=== PATIENT | female | born 1960 | race Caucasian/White ===

== ENCOUNTER 2018-06-07 00:23 | Emergency (ER) | payer BC, OTHER ==
[~2018-06-07] VITALS: Ht 165.1 cm; Wt 54.4 kg
[2018-06-07 01:30] LABS: URINE BILIRUBIN NEGATIVE (Negative); URINE BLOOD 3+ (Negative); URINE CLARITY SL CLOUDY; URINE COLOR YELLOW; URINE GLUCOSE-RANDOM* NEGATIVE (Negative); URINE KETONES NEGATIVE (Negative); URINE LEUKOCYTES-REFLEX 3+ (Negative); URINE NITRITE-REFLEX NEGATIVE (Negative); URINE PROTEIN (DIPSTICK) 2+ (Negative); URINE SPECIFIC GRAVITY 1.025 (1.005-1.035); URINE UROBILINOGEN 0.2 E.U./dl (0.2-1.0)
[2018-06-07 01:32] LABS: ABSOLUTE NEUTROPHILS 5.7 thou/uL (1.4-8.2); EOSINOPHILS 6.9 % (0.0-3.0); HEMATOCRIT 25.9 % (37.0-47.0); HEMOGLOBIN 9.1 gm/dL (12.0-15.0); LYMPHOCYTES 25.8 % (24.0-44.0); MCH 33.3 pg (26.0-34.0); MCHC 35.4 g/dL (28.0-37.0); MCV 94.1 fL (80.0-100.0); MONOCYTES 10.1 % (1.0-8.0); PLATELET COUNT 338 thou/uL (150-400); POLYS 56.2 % (36.0-66.0); RBC 2.75 mil/uL (4.20-5.00); RDW 14.6 % (10.5-14.5); WBC 10.2 thou/uL (4.0-11.0)
[2018-06-07 01:37] LABS: CASTS None Seen /LPF (None Seen); MUCUS None Seen strn/LPF (None Seen); SQUAMOUS None Seen /LPF (0-3); URINE WBC-REFLEX >25 Many /HPF (0-5); WBC CLUMPS Few (None Seen)
[2018-06-07 01:38] LABS: AMORPHOUS URATES Moderate /LPF (None Seen); CALCIUM 9.3 mg/dL (8.5-10.1); CREATININE 0.6 mg/dL (0.6-1.0); CRYSTALS None Seen /LPF (None Seen)
[2018-06-07 01:44] LABS: TOTAL BILIRUBIN 0.2 mg/dL (<0.1-1.0); TOTAL PROTEIN 6.3 g/dL (6.4-8.2)
[2018-06-07] MEDS ORDERED: BACTRIM DS TAB1 EACH PO (02:06)
[2018-06-07 03:54] VITALS: BP 146/78
== END 2018-06-07 03:57 | disposition home or self-care (01) ==
LOC: ER 00:23
PROVIDERS: Emergency Medicine
DX: T83.098A Other mechanical complication of other urinary catheter, initial encounter (principal); N39.0 Urinary tract infection, site not specified; D64.9 Anemia, unspecified; G82.20 Paraplegia, unspecified; Y83.9 Surgical procedure, unspecified as the cause of abnormal reaction of the patient, or of later complication, without mention of misadventure at the time of the procedure; Y92.89 Other specified places as the place of occurrence of the external cause

== ENCOUNTER 2018-06-10 22:28 | Inpatient (IN) | payer BC, OTHER ==
[~2018-06-10] VITALS: Ht 167.6 cm; Wt 57.3 kg
--- NOTE | ~2018-06-10 | EKG ---
[address] [address] ELECTROCARDIOGRAM REPORT Name: JORGE CEVALLOS Room #: 239-P ADM IN M.R.#: [id number] Admission: 06/11/18 Attend Phys: Alfredo Campos MD Discharge: Date of : 56 Report #: [id number] THIS REPORT FOR: //name// [facility] ED Test Date: 2018-06-11 Test Time: 00:45:20 Pat Name: JORGE CEVALLOS Department: Room: 239 P Gender: F [employer]aching Machine Operator: LEANNA : 1960 Requested By: Flores Maria Order Number: [id number] MD: Cal Kang Measurements Intervals [place] Rate: 76 P: 59 HI: 131 QRS: 71 QRSD: 98 T: 53 QT: 388 QTc: 437 Interpretive Statements Sinus rhythm Normal tracing No previous ECG available for comparison Electronically Signed On 06-11-2018 8:58:58 CDT by Cal Kang [email or web address] <ELECTRONICALLY SIGNED> By: Cal Kang MD, FACC 06/11/18 0858 0045 0045 Cal Kang MD, FACC /EPI
[~2018-06-10 22:28] MED LIST: BACTRIM DS TAB1 EACH PO
[2018-06-10 23:20] LABS: ABSOLUTE NEUTROPHILS 5.4 thou/uL (1.4-8.2); EOSINOPHILS 8.5 % (0.0-3.0); HEMATOCRIT 25.9 % (37.0-47.0); HEMOGLOBIN 9.1 gm/dL (12.0-15.0); LYMPHOCYTES 23.2 % (24.0-44.0); MCH 33.3 pg (26.0-34.0); MCHC 35.3 g/dL (28.0-37.0); MCV 94.3 fL (80.0-100.0); MONOCYTES 8.3 % (1.0-8.0); PLATELET COUNT 319 thou/uL (150-400); RBC 2.74 mil/uL (4.20-5.00); RDW 14.9 % (10.5-14.5); WBC 9.1 thou/uL (4.0-11.0)
[2018-06-10 23:23] LABS: ANION GAP 9 mmol/L (7-16); BUN 13 mg/dL (7-18); CALCIUM 9.9 mg/dL (8.5-10.1); CHLORIDE 102 mmol/L (98-107); CO2 25 mmol/L (21-32); CREATININE 0.8 mg/dL (0.6-1.0); POTASSIUM 4.3 mmol/L (3.5-5.1); SODIUM 136 mmol/L (136-145)
[2018-06-10 23:29] LABS: ALBUMIN 3.1 g/dL (3.4-5.0); DIRECT BILIRUBIN < 0.1 mg/dL (<0.1-0.3); LIPASE 73 U/L (73-393); SGOT 30 U/L (15-37); SGPT 33 U/L (30-65); TOTAL BILIRUBIN 0.2 mg/dL (<0.1-1.0); TOTAL PROTEIN 6.2 g/dL (6.4-8.2)
[2018-06-10 23:31] LABS: URINE BILIRUBIN NEGATIVE (Negative); URINE BLOOD 3+ (Negative); URINE CLARITY SL CLOUDY; URINE COLOR YELLOW; URINE GLUCOSE-RANDOM* NEGATIVE (Negative); URINE KETONES NEGATIVE (Negative); URINE NITRITE-REFLEX NEGATIVE (Negative); URINE PROTEIN (DIPSTICK) TRACE (Negative); URINE UROBILINOGEN 0.2 E.U./dl (0.2-1.0)
[2018-06-10 23:31] LABS: GLUCOSE 101 mg/dL (74-106)
[2018-06-10 23:32] LABS: URINE LEUKOCYTES-REFLEX 3+ (Negative)
[2018-06-10 23:41] LABS: CASTS None Seen /LPF (None Seen); MUCUS None Seen strn/LPF (None Seen); SQUAMOUS None Seen /LPF (0-3); YEAST-REFLEX Present (None Seen)
[2018-06-10 23:42] LABS: BACTERIA-REFLEX >30 Many /HPF (None Seen); CRYSTALS None Seen /LPF (None Seen); URINE RBC 3-10 Few /HPF (0-2); URINE WBC-REFLEX >25 Many /HPF (0-5)
[2018-06-10] MEDS ORDERED: VITAMIN D5000 UNI1 PO (23:46)
[2018-06-10] MEDS ORDERED: FLOMAX0.4 MG PO (23:46)
[2018-06-10] MEDS ORDERED: VITAMINC500 PO (23:47)
[2018-06-10] MEDS ORDERED: VITAMIN B-1100 M1 PO (23:47)
[2018-06-10] MEDS ORDERED: HIPREX1 GM PO (23:48)
[2018-06-10] MEDS ORDERED: CENTRUM SILVER1 EAC4 PO (23:48)
[2018-06-10] MEDS ORDERED: PAXIL10 MG PO (23:49)
[2018-06-10] MEDS ORDERED: KLOR-CON 1010 MEQ PO (23:49)
[2018-06-10] MEDS ORDERED: PROTONIX40 M1 PO (23:49)
[2018-06-10] MEDS ORDERED: MIRALAX17 GM PO (23:49)
[2018-06-10] MEDS ORDERED: SENNA PLUS TAB1 EACH PO (23:50)
[2018-06-10] MEDS ORDERED: ELIQUIS2.5 MG PO (23:51)
[2018-06-10] MEDS ORDERED: ANTIBIOTIC28.4 GM TOP (23:51)
[2018-06-10] MEDS ORDERED: ENEMEEZ PLUS MIN5 ML RECTAL (23:51)
[2018-06-10] MEDS ORDERED: METHYLPHENIDATE10 M7 PO (23:52)
[2018-06-10] MEDS ORDERED: ATIVAN0.5 MG PO (23:52)
[2018-06-10] MEDS ORDERED: NYAMYC15 GM TOP (23:52)
[2018-06-10] MEDS ORDERED: MTX 4%-1% PATC1 EACH TOP (23:54)
[2018-06-10] MEDS ORDERED: LIORESAL 10 MG10 MG PO (23:55)
[2018-06-10] MEDS ORDERED: SANTYL OINTMENT30 G1 TOP (23:55)
[2018-06-10] MEDS ORDERED: NORCO 5-325 TA1 EACH PO (23:55)
[2018-06-10] MEDS ORDERED: CALCIUM 600 +1 EAC1 PO (23:55)
[2018-06-10] MEDS ORDERED: CELEBREX 200 M200 M1 PO (23:56)
[2018-06-10] MEDS ORDERED: CARVEDILOL12.5 MG PO (23:56)
[2018-06-10] MEDS ORDERED: FLEXERIL PO (23:57)
[2018-06-10] MEDS ORDERED: FLORINEF ACETA0.1 MG PO (23:57)
[2018-06-10] MEDS ORDERED: COLACE100 MG PO (23:57)
[2018-06-10] MEDS ORDERED: NEURONTIN600 MG PO (23:58)
[2018-06-10] MEDS ORDERED: NEURONTIN 300300 M1 PO (23:58)
[2018-06-10] MEDS ORDERED: FOLIC ACID 1 MG1 MG PO (23:58)
[2018-06-10] MEDS ORDERED: IBUPROFEN 600600 M1 PO (23:59)
[2018-06-10] MEDS ORDERED: COZAAR 25 MG TA25 M1 PO (23:59)
[2018-06-10] MEDS ORDERED: MELATONIN5 M1 PO (23:59)
[2018-06-11 01:32] VITALS: BP 111/51
[2018-06-11 02:27] VITALS: BP 127/88
[2018-06-11 04:00] VITALS: BP 126/62
[2018-06-11 08:00] VITALS: BP 131/59
[2018-06-11 12:00] VITALS: BP 158/76
[2018-06-11 12:53] LABS: % SATURATION 16 % (20-39); IRON 35 ug/dL (50-170); TIBC 222 ug/dL (250-450)
[2018-06-11 13:41] LABS: FOLIC ACID > 40.0 ng/mL (8.6-58.9)
[2018-06-11 20:01] VITALS: BP 163/59
[2018-06-12 00:01] VITALS: BP 158/105
[2018-06-12 08:00] VITALS: BP 159/96
[2018-06-12 08:13] VITALS: BP 169/86
[2018-06-12 12:01] VITALS: BP 183/90
[2018-06-12 16:29] VITALS: BP 166/61
[2018-06-12 19:08] VITALS: BP 146/65
[2018-06-13 03:15] VITALS: BP 195/91
[2018-06-13 07:15] VITALS: BP 176/91
[2018-06-13 11:22] LABS: HEMATOCRIT 26.6 % (37.0-47.0); HEMOGLOBIN 9.3 gm/dL (12.0-15.0); MCH 33.1 pg (26.0-34.0); MCHC 35.1 g/dL (28.0-37.0); MCV 94.4 fL (80.0-100.0); RBC 2.82 mil/uL (4.20-5.00); RDW 14.5 % (10.5-14.5); WBC 6.4 thou/uL (4.0-11.0)
[2018-06-13 11:38] LABS: CALCIUM 9.3 mg/dL (8.5-10.1); CREATININE 0.6 mg/dL (0.6-1.0); MAGNESIUM 1.4 mg/dL (1.8-2.4); POTASSIUM 3.6 mmol/L (3.5-5.1)
[2018-06-13 15:32] VITALS: BP 148/68
[2018-06-13 20:05] VITALS: BP 179/68
[2018-06-14 04:42] VITALS: BP 162/66
[2018-06-14 05:22] LABS: HEMATOCRIT 26.4 % (37.0-47.0); MCH 32.6 pg (26.0-34.0); MCHC 34.2 g/dL (28.0-37.0); MCV 95.2 fL (80.0-100.0); RBC 2.77 mil/uL (4.20-5.00); RDW 14.4 % (10.5-14.5); WBC 8.3 thou/uL (4.0-11.0)
[2018-06-14 05:37] LABS: CREATININE 0.5 mg/dL (0.6-1.0); MAGNESIUM 1.5 mg/dL (1.8-2.4); POTASSIUM 3.8 mmol/L (3.5-5.1)
[2018-06-14 08:00] VITALS: BP 165/77
[2018-06-14 15:00] VITALS: BP 151/79
[2018-06-14 19:30] VITALS: BP 173/89
[2018-06-15 04:17] VITALS: BP 180/85
[2018-06-15 06:18] LABS: HEMATOCRIT 29.7 % (37.0-47.0); HEMOGLOBIN 10.1 gm/dL (12.0-15.0); MCH 32.5 pg (26.0-34.0); MCV 95.8 fL (80.0-100.0); RBC 3.11 mil/uL (4.20-5.00); RDW 14.7 % (10.5-14.5); WBC 6.8 thou/uL (4.0-11.0)
[2018-06-15 06:26] LABS: CALCIUM 9.6 mg/dL (8.5-10.1); CREATININE 0.4 mg/dL (0.6-1.0); MAGNESIUM 1.5 mg/dL (1.8-2.4); POTASSIUM 3.8 mmol/L (3.5-5.1)
[2018-06-15 08:00] VITALS: BP 178/70
[2018-06-15 14:00] VITALS: BP 135/89
[2018-06-16 03:55] VITALS: BP 165/83
[2018-06-16 04:36] LABS: HEMATOCRIT 28.8 % (37.0-47.0); MCH 33.1 pg (26.0-34.0); MCHC 34.6 g/dL (28.0-37.0); MCV 95.5 fL (80.0-100.0); RBC 3.02 mil/uL (4.20-5.00); RDW 14.5 % (10.5-14.5)
[2018-06-16 04:47] LABS: CALCIUM 9.6 mg/dL (8.5-10.1); CREATININE 0.5 mg/dL (0.6-1.0); MAGNESIUM 1.4 mg/dL (1.8-2.4); POTASSIUM 3.8 mmol/L (3.5-5.1)
[2018-06-16 08:00] VITALS: BP 185/96
[2018-06-16 15:19] VITALS: BP 140/77
[2018-06-16 19:28] VITALS: BP 175/84
[2018-06-17 04:20] VITALS: BP 181/89
[2018-06-17 06:28] LABS: HEMATOCRIT 28.8 % (37.0-47.0); MCH 32.8 pg (26.0-34.0); MCHC 34.6 g/dL (28.0-37.0); MCV 94.9 fL (80.0-100.0); RBC 3.03 mil/uL (4.20-5.00); RDW 14.7 % (10.5-14.5); WBC 7.2 thou/uL (4.0-11.0)
[2018-06-17 06:40] LABS: CALCIUM 9.5 mg/dL (8.5-10.1); CREATININE 0.4 mg/dL (0.6-1.0); MAGNESIUM 1.4 mg/dL (1.8-2.4); POTASSIUM 3.4 mmol/L (3.5-5.1)
[2018-06-17 08:12] VITALS: BP 172/71
[2018-06-17 15:15] VITALS: BP 131/77
[2018-06-17 19:45] VITALS: BP 156/74
[2018-06-18 02:55] VITALS: BP 146/74
[2018-06-18 06:25] LABS: HEMATOCRIT 28.4 % (37.0-47.0); HEMOGLOBIN 9.9 gm/dL (12.0-15.0); MCH 33.2 pg (26.0-34.0); MCHC 34.9 g/dL (28.0-37.0); RBC 2.99 mil/uL (4.20-5.00); RDW 14.6 % (10.5-14.5); WBC 9.1 thou/uL (4.0-11.0)
[2018-06-18 06:33] LABS: CALCIUM 9.7 mg/dL (8.5-10.1); CREATININE 0.6 mg/dL (0.6-1.0); POTASSIUM 4.6 mmol/L (3.5-5.1)
[2018-06-18 07:57] VITALS: BP 140/85
[2018-06-18] MEDS ORDERED: CIPROFLOXACIN500 M1 PO (13:47)
[2018-06-18] MEDS ORDERED: PROBIOTIC1 EAC1 PO (13:51)
[2018-06-18 15:34] VITALS: BP 140/85
== END 2018-06-18 16:00 | DRG 689 ==
LOC: ER 22:28 → ICU 06-11 01:05 → EROBS 06-11 01:05 → 4W 06-11 01:05 → ICU 06-11 02:29 → 4W 06-12 15:29
PROVIDERS: Emergency Medicine; Hospitalist; Internal Medicine; Nurse Practitioner Acute Care
DX: N39.0 Urinary tract infection, site not specified (principal); G92 Toxic encephalopathy; E46 Unspecified protein-calorie malnutrition; K94.23 Gastrostomy malfunction; I10 Essential (primary) hypertension; D64.9 Anemia, unspecified; B96.5 Pseudomonas (aeruginosa) (mallei) (pseudomallei) as the cause of diseases classified elsewhere; Z88.8 Allergy status to other drugs, medicaments and biological substances; Z87.891 Personal history of nicotine dependence; Z68.20 Body mass index [BMI] 20.0-20.9, adult; Z79.899 Other long term (current) drug therapy
CPT/HCPCS: 10045; 10203

== ENCOUNTER → 2020-12-31 | Outpatient (CLI) | payer BC, OTHER ==
[~2020-12-31] MED LIST changes: +ANTIBIOTIC28.4 GM TOP; +ATIVAN0.5 MG PO; +CALCIUM 600 +1 EAC1 PO; +CARVEDILOL12.5 MG PO; +CELEBREX 200 M200 M1 PO; +CENTRUM SILVER1 EAC4 PO; +CIPROFLOXACIN500 M1 PO; +COLACE100 MG PO; +COZAAR 25 MG TA25 M1 PO; +CYMBALTA30 MG PO; +ELIQUIS2.5 MG PO; +ENEMEEZ PLUS MIN5 ML RECTAL; +FLEXERIL PO; +FLOMAX0.4 MG PO; +FLORINEF ACETA0.1 MG PO; +FOLIC ACID 1 MG1 MG PO; +GABAPENTIN PO; +HIPREX1 GM PO; +IBUPROFEN 600600 M1 PO; +KLOR-CON 1010 MEQ PO; +LIORESAL 10 MG10 MG PO; +MELATONIN5 M1 PO; +METHYLPHENIDATE10 M7 PO; +MIRALAX17 GM PO; +MTX 4%-1% PATC1 EACH TOP; +NEURONTIN 300300 M1 PO; +NEURONTIN600 MG PO; +NORCO 5-325 TA1 EACH PO; +NYAMYC15 GM TOP; +PAXIL10 MG PO; +PROBIOTIC1 EAC1 PO; +PROTONIX40 M1 PO; +ROXICODONE5 M2 PO; +SANTYL OINTMENT30 G1 TOP; +SENNA PLUS TAB1 EACH PO; +VITAMIN B-1100 M1 PO; +VITAMIN D5000 UNI1 PO; +VITAMINC500 PO
[2020-12-31 14:14] VITALS: BP 95/62
--- NOTE | 2020-12-31 15:05 | NUR ---
Pain Clinic Assessment: 1. History of Osteoarthritis: History of Rheumatoid Arthritis: 2. Height: 5 ft. 5 in. 165.1 cm. Weight: lb. oz. kg. Patient's BMI: 3. Vital Signs: BP: 95/62 Pulse: 79 Resp: 16 Temp: 02 Sat: 96 ECG Mon: 4. Pain Intensity: 4 5. Fall Risk: Dizziness: N Needs help standing or walking: Y Fallen in the last 3 months: N Fall risk comments: 6. Patient on Blood Thinner: EZEQUIEL 7. History of Hypertension: Y 8. Opioid Therapy greater than 6 weeks: Opiate Contract Signed: 9. Risk Assessment Tool Provided: 3 LOW RISK 10. Functional Assessment Tool: 11. Recreational Drug Use: Never Drug Type: Tobacco Use: Former Smoker Tobacco Type: Amount or Packs/day: How Many Years: Alcohol Use: Yes Frequency: Weekly Quant: 2
== END ==
LOC: PAIN 09:20
PROVIDERS: ATTEND Anesthesiology Pain Medicine
DX: S14.8 Injury of other specified nerves of neck (principal); R29.5 Transient paralysis; G89.29 Other chronic pain; M62.838 Other muscle spasm; X58.XXXD Exposure to other specified factors, subsequent encounter

== ENCOUNTER → 2021-01-14 | Outpatient (CLI) | payer BC, OTHER ==
[2021-01-14 14:41] VITALS: BP 94/59
--- NOTE | 2021-01-14 15:02 | NUR ---
Pain Clinic Assessment: 1. History of Osteoarthritis: Left Lower Extremity Left Upper Extremity Right Lower Extremity Right Upper Extremity History of Rheumatoid Arthritis: 2. Height: ft. in. cm. Weight: lb. oz. kg. Patient's BMI: 3. Vital Signs: BP: 94/59 Pulse: 75 Resp: 14 Temp: 02 Sat: 95 ECG Mon: 4. Pain Intensity: 1-2 5. Fall Risk: Dizziness: N Needs help standing or walking: Y Fallen in the last 3 months: N Fall risk comments: 6. Patient on Blood Thinner: ELIQUIS 7. History of Hypertension: Y 8. Opioid Therapy greater than 6 weeks: Opiate Contract Signed: 9. Risk Assessment Tool Provided: 3 LOW RISK 10. Functional Assessment Tool: 11. Recreational Drug Use: Never Drug Type: Tobacco Use: Former Smoker Tobacco Type: Amount or Packs/day: How Many Years: Alcohol Use: Yes Frequency: Weekly Quant: 2
== END | disposition home or self-care (01) ==
LOC: PAIN 11:05
PROVIDERS: ATTEND Anesthesiology Pain Medicine
DX: Z45.1 Encounter for adjustment and management of infusion pump (principal); G89.29 Other chronic pain; G80.0 Spastic quadriplegic cerebral palsy; I10 Essential (primary) hypertension; M19.90 Unspecified osteoarthritis, unspecified site; Z98.890 Other specified postprocedural states; Z79.899 Other long term (current) drug therapy; Z79.01 Long term (current) use of anticoagulants; Z88.8 Allergy status to other drugs, medicaments and biological substances

== ENCOUNTER → 2021-02-04 | Outpatient (CLI) | payer BC, OTHER ==
[2021-02-04 13:56] VITALS: BP 120/60
--- NOTE | 2021-02-04 14:03 | NUR ---
Pain Clinic Assessment: 1. History of Osteoarthritis: Left Lower Extremity Left Upper Extremity Right Lower Extremity Right Upper Extremity History of Rheumatoid Arthritis: Not Applicable 2. Height: ft. in. cm. Weight: lb. oz. kg. Patient's BMI: 3. Vital Signs: BP: 120/60 Pulse: 88 Resp: 16 Temp: 02 Sat: 95 ECG Mon: 4. Pain Intensity: 3 5. Fall Risk: Dizziness: N Needs help standing or walking: Y Fallen in the last 3 months: N Fall risk comments: 6. Patient on Blood Thinner: ELIQUIS 7. History of Hypertension: Y 8. Opioid Therapy greater than 6 weeks: Opiate Contract Signed: 9. Risk Assessment Tool Provided: 3 LOW RISK 10. Functional Assessment Tool: 11. Recreational Drug Use: Never Drug Type: Tobacco Use: Former Smoker Tobacco Type: Amount or Packs/day: How Many Years: Alcohol Use: Yes Frequency: Weekly Quant: 3
== END | disposition home or self-care (01) ==
LOC: PAIN 09:35
PROVIDERS: ATTEND Anesthesiology Pain Medicine
DX: Z45.1 Encounter for adjustment and management of infusion pump (principal); G89.29 Other chronic pain; G82.52 Quadriplegia, C1-C4 incomplete; R25.2 Cramp and spasm; I10 Essential (primary) hypertension; M19.90 Unspecified osteoarthritis, unspecified site; F32.9 Major depressive disorder, single episode, unspecified; F41.9 Anxiety disorder, unspecified; Z98.890 Other specified postprocedural states; Z79.899 Other long term (current) drug therapy; Z79.891 Long term (current) use of opiate analgesic; Z87.891 Personal history of nicotine dependence; Z79.01 Long term (current) use of anticoagulants; Z88.8 Allergy status to other drugs, medicaments and biological substances

== ENCOUNTER → 2021-02-13 | Outpatient (CLI) | payer BC, OTHER ==
[~2021-02-13] MED LIST changes: +NARCAN4 MG NARES
== END ==
LOC: ULTRA 12:48
PROVIDERS: ATTEND Nurse Practitioner
DX: M79.604 Pain in right leg (principal); M79.605 Pain in left leg; I89.0 Lymphedema, not elsewhere classified; I10 Essential (primary) hypertension

== ENCOUNTER → 2021-02-25 | Outpatient (CLI) | payer BC, OTHER ==
[2021-02-25 14:11] VITALS: BP 99/66
--- NOTE | 2021-02-25 14:36 | NUR ---
Pain Clinic Assessment: 1. History of Osteoarthritis: Left Lower Extremity Left Upper Extremity Right Lower Extremity Right Upper Extremity History of Rheumatoid Arthritis: Not Applicable 2. Height: ft. in. cm. Weight: lb. oz. kg. Patient's BMI: 3. Vital Signs: BP: 99/66 Pulse: 78 Resp: 20 Temp: 02 Sat: 95 ECG Mon: 4. Pain Intensity: 3 5. Fall Risk: Dizziness: N Needs help standing or walking: Y Fallen in the last 3 months: N Fall risk comments: 6. Patient on Blood Thinner: ELIQUIS 7. History of Hypertension: Y 8. Opioid Therapy greater than 6 weeks: Opiate Contract Signed: 9. Risk Assessment Tool Provided: 3 LOW RISK 10. Functional Assessment Tool: 11. Recreational Drug Use: Never Drug Type: Tobacco Use: Former Smoker Tobacco Type: Amount or Packs/day: How Many Years: Alcohol Use: Yes Frequency: Weekly Quant: 3
== END | disposition home or self-care (01) ==
LOC: PAIN 08:35
PROVIDERS: ATTEND Anesthesiology Pain Medicine
DX: Z45.1 Encounter for adjustment and management of infusion pump (principal); R25.2 Cramp and spasm; G89.4 Chronic pain syndrome; M79.2 Neuralgia and neuritis, unspecified; I10 Essential (primary) hypertension; M19.90 Unspecified osteoarthritis, unspecified site; F32.9 Major depressive disorder, single episode, unspecified; F41.9 Anxiety disorder, unspecified; Z98.890 Other specified postprocedural states; Z79.899 Other long term (current) drug therapy; Z79.891 Long term (current) use of opiate analgesic; Z87.891 Personal history of nicotine dependence; Z79.01 Long term (current) use of anticoagulants; Z88.8 Allergy status to other drugs, medicaments and biological substances

== ENCOUNTER → 2021-03-18 | Outpatient (CLI) | payer BC, OTHER ==
[2021-03-18 14:58] VITALS: BP 120/75
--- NOTE | 2021-03-18 15:18 | NUR ---
Pain Clinic Assessment: 1. History of Osteoarthritis: Left Lower Extremity Left Upper Extremity Right Lower Extremity Right Upper Extremity History of Rheumatoid Arthritis: Not Applicable 2. Height: ft. in. cm. Weight: lb. oz. kg. Patient's BMI: 3. Vital Signs: BP: 120/75 Pulse: 88 Resp: 16 Temp: 02 Sat: 98 ECG Mon: 4. Pain Intensity: 7 5. Fall Risk: Dizziness: N Needs help standing or walking: Y Fallen in the last 3 months: N Fall risk comments: 6. Patient on Blood Thinner: JEIMYQUIS 7. History of Hypertension: Y 8. Opioid Therapy greater than 6 weeks: Opiate Contract Signed: 9. Risk Assessment Tool Provided: 3 LOW RISK 10. Functional Assessment Tool: 11. Recreational Drug Use: Never Drug Type: Tobacco Use: Former Smoker Tobacco Type: Amount or Packs/day: How Many Years: Alcohol Use: Yes Frequency: Special Occasions Quant: 3
== END | disposition home or self-care (01) ==
LOC: PAIN 07:40
PROVIDERS: ATTEND Anesthesiology Pain Medicine
DX: Z45.1 Encounter for adjustment and management of infusion pump (principal); G82.22 Paraplegia, incomplete; G89.29 Other chronic pain; I10 Essential (primary) hypertension; M19.90 Unspecified osteoarthritis, unspecified site; F32.9 Major depressive disorder, single episode, unspecified; F41.9 Anxiety disorder, unspecified; Z79.891 Long term (current) use of opiate analgesic; Z98.890 Other specified postprocedural states; Z79.899 Other long term (current) drug therapy

== ENCOUNTER → 2021-06-03 | Outpatient (CLI) | payer BC, OTHER ==
[2021-06-03 13:03] VITALS: BP 120/72
--- NOTE | 2021-06-03 13:16 | NUR ---
Pain Clinic Assessment: 1. History of Osteoarthritis: Left Lower Extremity Left Upper Extremity Right Lower Extremity Right Upper Extremity History of Rheumatoid Arthritis: Not Applicable 2. Height: ft. in. cm. Weight: lb. oz. kg. Patient's BMI: 3. Vital Signs: BP: 120/72 Pulse: 87 Resp: 16 Temp: 02 Sat: 95 ECG Mon: 4. Pain Intensity: 2 5. Fall Risk: Dizziness: N Needs help standing or walking: Y Fallen in the last 3 months: N Fall risk comments: 6. Patient on Blood Thinner: ELIQUIS 7. History of Hypertension: Y 8. Opioid Therapy greater than 6 weeks: Opiate Contract Signed: 9. Risk Assessment Tool Provided: 3 LOW RISK 10. Functional Assessment Tool: 11. Recreational Drug Use: Never Drug Type: Tobacco Use: Former Smoker Tobacco Type: Amount or Packs/day: How Many Years: Alcohol Use: Yes Frequency: Quant:
== END | disposition home or self-care (01) ==
LOC: PAIN 10:10
PROVIDERS: ATTEND Anesthesiology Pain Medicine
DX: Z45.1 Encounter for adjustment and management of infusion pump (principal); G80.0 Spastic quadriplegic cerebral palsy; G89.29 Other chronic pain; I10 Essential (primary) hypertension; M19.90 Unspecified osteoarthritis, unspecified site; Z98.890 Other specified postprocedural states; Z79.899 Other long term (current) drug therapy; Z87.891 Personal history of nicotine dependence; Z79.01 Long term (current) use of anticoagulants

== ENCOUNTER → 2021-08-08 | Outpatient (CLI) | payer BC, OTHER ==
[2021-08-08 10:49] VITALS: BP 172/79
--- NOTE | 2021-08-08 11:24 | NUR ---
Pain Clinic Assessment: 1. History of Osteoarthritis: Left Lower Extremity Left Upper Extremity Right Lower Extremity Right Upper Extremity History of Rheumatoid Arthritis: Not Applicable 2. Height: ft. in. cm. Weight: lb. oz. kg. Patient's BMI: 3. Vital Signs: BP: 172/79 Pulse: 77 Resp: 18 Temp: 02 Sat: 100 ECG Mon: 4. Pain Intensity: 2 5. Fall Risk: Dizziness: N Needs help standing or walking: Y Fallen in the last 3 months: N Fall risk comments: 6. Patient on Blood Thinner: JEIMYQUIS 7. History of Hypertension: Y 8. Opioid Therapy greater than 6 weeks: Y Opiate Contract Signed: 9. Risk Assessment Tool Provided: 3 LOW RISK 10. Functional Assessment Tool: 11. Recreational Drug Use: Never Drug Type: Tobacco Use: Former Smoker Tobacco Type: Amount or Packs/day: How Many Years: Alcohol Use: No Frequency: Quant:
== END | disposition home or self-care (01) ==
LOC: PAIN 06:54
PROVIDERS: ATTEND Anesthesiology Pain Medicine
DX: Z45.1 Encounter for adjustment and management of infusion pump (principal); G89.29 Other chronic pain; R25.2 Cramp and spasm; G82.52 Quadriplegia, C1-C4 incomplete; I10 Essential (primary) hypertension; M19.90 Unspecified osteoarthritis, unspecified site; Z98.890 Other specified postprocedural states; Z79.899 Other long term (current) drug therapy; Z87.891 Personal history of nicotine dependence; Z79.01 Long term (current) use of anticoagulants; Z88.8 Allergy status to other drugs, medicaments and biological substances